=== PATIENT | male | born 1980 | race Caucasian/White ===

== ENCOUNTER 2018-01-01 18:57 | Emergency (ER) | payer BC ==
[~2018-01-01] VITALS: Ht 182.9 cm; Wt 151.2 kg
[~2018-01-01 18:57] MED LIST: ADVAIR DISK1 INH; ALBUTEROL S2.5 MG/.5 IN; ALBUTEROL SUL0.083 % IN; ALBUTEROL0.5 % IN; CIPRO500 MG OR; CIPROFLOXACN500 MG PO; DONNATA2 PO; DUONEB IN; FLEXERIL PO; HEPARIN LOC IV; HYDROCODON OR; IPRATROPIU0.5 MG/3 M IN; MEDDOSEPAK OR; MEDDOSEPAK PO; MEDROL4 M1 PO; NASONEX50 MCG/AC; OMEPRAZOLE20 M1 PO; ONDANSETRON HCL4 MG PO; ONDANSETRON4 MG PO; PHENERGAN25 MG RE; PREDNISONE10 MG OR; PREDNISONE20 MG OR; PROAIR HFA IN; PROTONIX40 M2 PO; PROTONIX40 MG PO; PULMICORT0.5MG/2ML IN; SEPTRA DS1 TAB OR; SODIUM CHLORIDE IV; STERAPRED DS10 MG OR; STERAPRED DS10 MG PO; SYMBICORT1 AE1 IN; SYMBICORT1 AER IN; ULTRAM50 M1 PO; ULTRAM50 MG PO; UNABLE TO OBTAIN; VANCOMYCIN1000 MG IV; VENTOLIN HFA IN; ZITHROMAX TRI-P1 TAB PO; ZITHROMAX250 MG OR; ZITHROMAX250 MG PO; ZOFRAN ODT4 MG PO; ZPAK OR; ZPAK PO; [UNRECOGNIZED DRUG - OTHER] IN; [UNRECOGNIZED DRUG - OTHER] IV
[2018-01-01 19:33] LABS: HEMATOCRIT 42.6 % (39.0-50.0); HEMOGLOBIN 14.2 g/dl (14.0-18.0); IMMATURE GRANULOCYTES 0.3 % (0.0-1.0); MEAN CELL VOLUME 86.8 fL CALC (80.0-100.0); MEAN CORPUSCULAR HGB 28.9 pG CALC (26.0-32.0); MEAN CORPUSCULAR HGB CONC 33.3 g/L CALC (32.0-36.0); NEUT# 4.83 thou/uL (1.82-7.42); RED BLOOD COUNT 4.91 mill/uL (4.70-6.10); RED CELL DISTRI WIDTH 13.2 % (11.5-15.5)
[2018-01-01 19:44] LABS: ALKALINE PHOSPHATASE 103 u/l (38-126); ANION GAP 16 (6-22 (CALC)); BILIRUBIN, TOTAL 0.4 mg/dL (0.0-1.4); BUN 8 mg/dL (9-20); BUN/CREATININE RATIO 10 (12-20 (CALC)); CARBON DIOXIDE 25 mmol/l (22-30); CHLORIDE 104 mmol/l (95-108); CREATININE 0.9 mg/dL (0.7-1.3); GFR > 60 ML/MIN (>=60 (CALC)); GFR FOR AFR.AMER. > 60 ML/MIN (>=60 (CALC)); POTASSIUM 3.8 mmol/l (3.5-5.1); SGOT/AST 53 u/l (17-59); SGPT/ALT 91 u/l (21-72); SODIUM 141 mmol/l (137-146)
[2018-01-01 19:48] LABS: INFLUENZA A NONE DETECTED (NONE DETECT); INFLUENZA B NONE DETECTED (NONE DETECT)
[2018-01-01 21:05] VITALS: BP 150/76
== END 2018-01-01 21:20 | disposition home or self-care (01) | DRG 203 ==
LOC: ED 18:57
PROVIDERS: Emergency Medicine
DX: J45.901 Unspecified asthma with (acute) exacerbation (principal); R05 Cough; Z72.0 Tobacco use; R50.9 Fever, unspecified

== ENCOUNTER 2018-09-02 14:31 | Observation (INO) | payer MEDICARE, BC ==
[~2018-09-02] VITALS: Ht 182.9 cm; Wt 152.7 kg
[2018-09-02] VITALS (8 sets, daily range): BP systolic 120–146; BP diastolic 65–90
--- NOTE | 2018-09-02 14:31 | NUR ---
PT IMMEDIATELY TO TX ROOM VIA WC. RR 30/MIN. AUDIBLE WHEEZING NOTED. RT CALLED.
[2018-09-02 15:16] LABS: IMMATURE GRANULOCYTES 0.3 % (0.0-5.0); MEAN CORPUSCULAR HGB 28.7 pG CALC (26.0-32.0); MEAN CORPUSCULAR HGB CONC 33.4 g/L CALC (32.0-36.0); NEUT# 5.64 thou/uL (1.82-7.42); RED BLOOD COUNT 5.78 mill/uL (4.70-6.10); RED CELL DISTRI WIDTH 12.5 % (11.5-15.5)
[2018-09-02 15:17] LABS: HEMATOCRIT 49.7 % (39.0-50.0); HEMOGLOBIN 16.6 g/dl (14.0-18.0)
[2018-09-02 15:21] LABS: ANION GAP 17 (6-22 (CALC)); BUN 13 mg/dL (9-20); BUN/CREATININE RATIO 16 (12-20 (CALC)); CARBON DIOXIDE 27 mmol/l (22-30); CHLORIDE 102 mmol/l (95-108); CREATININE 0.8 mg/dL (0.7-1.3); GFR > 60 ML/MIN (>=60 (CALC)); GFR FOR AFR.AMER. > 60 ML/MIN (>=60 (CALC)); POTASSIUM 4.2 mmol/l (3.5-5.1); SODIUM 141 mmol/l (137-146)
[2018-09-02] MEDS ORDERED: VENTOLIN HFA IN (15:24)
[2018-09-02] MEDS ORDERED: SYMBICORT1 AE1 IN (15:24)
--- NOTE | 2018-09-02 15:27 | NUR ---
WHEEZING NOTED TO BILATERAL LUNGS AFTER BREATHING TREATMENTS, RT PAGED FOR ADDITIONAL TREATMENTS ORDERED BY . PATIENT STATES "I ALWAY GAVE WHEEZING." PATIENT IS ALERT AND ORIENTED X4. FAMILY AT BEDSIDE. WILL CONTINUE TO MONITOR.
--- NOTE | 2018-09-02 15:55 | NUR ---
DR BRYANT AT BEDSIDE.
[2018-09-02 16:11] LABS: INFLUENZA A NONE DETECTED (NONE DETECT); INFLUENZA B NONE DETECTED (NONE DETECT)
--- NOTE | 2018-09-02 16:20 | NUR ---
PATIENT STATES "I FEEL MUCH BETTER." AFTER BREATHING TREATMENTS. LUNG SOUNDS CLEAR, CURRENTLY 99% O2 ON ROOM AIR. UPDATED ON WAIT TIME. VERBAL UNDERSTANDING.
--- NOTE | 2018-09-02 16:24 | NUR ---
REPORT GIVEN TO YOLA BRAR.
--- NOTE | 2018-09-02 16:30 | NUR ---
PATIENT TRANSPORTED TO ICU WITH ADMINISTRATIVE PERSONAL ASSISTANT IN PLACE VIA STRETCHER. CLOTHES, CELL PHONE AND GLASSES TRANSPORTED WITH PATIENT. PATIENT IN STABLE CONDITION, CARE RELINQUISHED TO YOLA BRAR.
--- NOTE | 2018-09-02 16:31 | NUR ---
PT ADMITTED TO ICU BED 8 FROM ER VIA STRETCHER; PT ALERT AND ORIENTED AMBULATED OFF STRECTHER AND INTO ROOM WITH STEADY GAIT; ADMISSION ASSESSMENT COMPLETED SEE INTERVNETIONS; ALL MONITORING EQUIPMENT EXPLAINED PRIOR TO APPLICATION, TELE READIN SR/ST RATE 95-104, BP STABLE SEE INTERVNETIONS PT AFEBRILE; LUNGS CLEAR DIMINSHED THRU OUT NO SOB OR DISTRESS NOTED AT THIS TIME, PT CAME INTO ER FOR ASTHMA ATTACK, PT HAS LONG STANDING HISTORY OF ASTHMA, USED HIS INHALER WITHOUT RELIEF, AFTER MUTIPLE NEB TREATMENTS IN ER OBTAINED RELIEF AND CURRENTLY STATES HE FEELS LIKE HE IS BREATHING "HIS NORMAL" AGAIN; SKIN WARM DRY AND INTACT, NO BREAKDOWN NOTED MILD TRACE EDEMA NOTED TO BILATERAL ANKLES, PPPB, SAFETY MEASURES INTRODUCED, ORIENTED TO ROOM AND UNIT, CALL SHAVER WITHIN REACH, ENCOURAGED TO CALL FOR ANY NEEDED ASSISTANCE, WILL CONTINUE TO MONITOR.
--- NOTE | 2018-09-02 17:30 | NUR ---
SPOUSE AT BEDSIDE, SET UP ASSIST PROVIDED FOR PM MEAL, OFFERS NO COMPLAINTS, O2 SAT MAINTAINED AT 98-100% ON ROOM AIR NO COUGH, SOB OR DISTRESS NOTED, WILL CONTINUE TO MONITOR.
--- NOTE | 2018-09-02 18:11 | NUR ---
RESTING IN BED, WATCHING TV, IV ABT INFUSING W/O INCIDENT THRU 18G IN R AC (GOOD ASPIRATE NOTED PRIOR TO STARTING INFUSION) CALL SHAVER WITHIN REACH, WILL CONTINUE TO MONITOR.
--- NOTE | 2018-09-02 19:30 | NUR ---
awake. denies resp diff. lungs clear with diminished breath sounds bibas. pt is very obese. security monitor shows sinus rhythm. #18 rac saline lock. po fluids taken well. voids per urinal. fall precautions cont.
--- NOTE | 2018-09-02 22:00 | NUR ---
sitting in bedside chair watching tv. no distress.
[2018-09-03 00:01] VITALS: BP 122/69
--- NOTE | 2018-09-03 00:01 | NUR ---
in bed per self. no c/o voiced. harness builder shows sinus rhythm.
[2018-09-03 02:00] VITALS: BP 122/66
--- NOTE | 2018-09-03 02:00 | NUR ---
resting quietly. appears to have sleep apnea. no resp distress.
[2018-09-03 04:00] VITALS: BP 123/68
--- NOTE | 2018-09-03 04:00 | NUR ---
eyes closed. ammonium hydroxide operator shows sinuws rhythm.
[2018-09-03 05:49] VITALS: BP 125/44
--- NOTE | 2018-09-03 05:50 | NUR ---
slept well this shift. no resp diff. color television console monitor shows sinus rhythm.
--- NOTE | 2018-09-03 06:45 | NUR ---
RECIEVED REPORT FROM AURELIA HARP. ASSUMED PT CARE.
[2018-09-03 08:00] VITALS: BP 143/87
--- NOTE | 2018-09-03 08:00 | NUR ---
PT A&OX3, ABLE TO MAKE NEEDS KNOWN. ST ON TELEMETRY, HR-108, B/P- 143/87, RR-22, SA02@95%RA. PT DENIES CHEST PAIN, SOB OR DISTRESS AT THIS TIME. RESPIRATIONS EVEN/UNLABORED, LS CLEAR BILAT UPPERS, DIMINISHED IN BILAT BASES. PT CONTINENT OF BLADDER, DENIES BURNING/PAIN UPON URINAtion. PT ABDOMEN SOFT/DISTENDED, NON-TENDER, BSX4 ACTIVE, REPORTS LAST BM 09/02/18. SKIN IS CDI, PT UP ADLIB WITH STEADY GAIT. 18G TO RAC FLUSHED WITHOUT DIFFICULTY NOTED, NO S/S OF INFILTRATION NOTED AT SITE. PT RESTING IN BED, CALL LIGHT IN REACH, WILL MONITOR.
--- NOTE | 2018-09-03 08:05 | NUR ---
DIETARY ON UNIT, BREAKFAST TRAY SET UP.
--- NOTE | 2018-09-03 08:30 | NUR ---
PT UP TO BATHROOM, URINE OP:750, DARK YELLOW. PT BACK TO BED, ALL MONITORS INTACT. CALL LIGHT IN REACH.
--- NOTE | 2018-09-03 09:00 | NUR ---
RADIOLOGY AT BS FOR CXR.
[2018-09-03 10:00] VITALS: BP 141/77
--- NOTE | 2018-09-03 10:15 | NUR ---
DR. BRYANT AT BEDSIDE FOR ASSESSMENT AND TO DISCUSS PLAN OF CARE, NEW ORDERS RECIEVED.
[2018-09-03] MEDS ORDERED: DOXYCYCL HYC100 MG PO (10:34)
[2018-09-03] MEDS ORDERED: PREDNISONE10 MG PO (10:34)
[2018-09-03] MEDS ORDERED: AMARYL2 MG PO (10:35)
[2018-09-03] MEDS ORDERED: PROTONIX40 M2 PO (10:44)
--- NOTE | 2018-09-03 11:10 | NUR ---
IV site discontinued, cath intact. No edema , no redness, voices no discomfort.
--- NOTE | 2018-09-03 11:45 | NUR ---
Discharge instructions given. Patient verbalizes understanding of same. Discharged in stable condition via Wheelchair to Home with family. All belongings sent with pt. New paper prescription sent home with pt.
== END 2018-09-03 11:45 | disposition home or self-care (01) ==
LOC: ED 14:31 → ED-I 15:53 → ED 16:06 → ICU 16:07
PROVIDERS: Family Medicine; ADMIT Internal Medicine Nephrology; ATTEND Internal Medicine Nephrology
DX: J45.901 Unspecified asthma with (acute) exacerbation (principal); J44.1 Chronic obstructive pulmonary disease with (acute) exacerbation; J96.02 Acute respiratory failure with hypercapnia; M06.9 Rheumatoid arthritis, unspecified; L40.9 Psoriasis, unspecified; K21.9 Gastro-esophageal reflux disease without esophagitis; F17.220 Nicotine dependence, chewing tobacco, uncomplicated; E87.2 Acidosis; E11.9 Type 2 diabetes mellitus without complications; G47.33 Obstructive sleep apnea (adult) (pediatric); E66.01 Morbid (severe) obesity due to excess calories
CPT/HCPCS: S0164

== ENCOUNTER 2018-09-08 08:38 | Emergency (ER) | payer MEDICARE, BC ==
[~2018-09-08] VITALS: Ht 182.9 cm; Wt 152.2 kg
[~2018-09-08 08:38] MED LIST changes: +AMARYL2 MG PO; +DOXYCYCL HYC100 MG PO; +PREDNISONE10 MG PO
[2018-09-08 09:57] VITALS: BP 137/95
== END 2018-09-08 10:08 | disposition home or self-care (01) ==
LOC: ED 08:38
DX: S93.601A Unspecified sprain of right foot, initial encounter (principal); S93.401A Sprain of unspecified ligament of right ankle, initial encounter; S63.501A Unspecified sprain of right wrist, initial encounter; J45.909 Unspecified asthma, uncomplicated; W10.1XXA Fall (on)(from) sidewalk curb, initial encounter; Y92.831 Amusement park as the place of occurrence of the external cause

== ENCOUNTER → 2019-01-30 | Outpatient (REF) | payer MEDICARE ==
[2019-01-30 10:22] VITALS: BP 162/89
== END ==
LOC: FIOURUCCI 10:00 → FIORUCCI 10:00
PROVIDERS: ATTEND Surgery
DX: K80.20 Calculus of gallbladder without cholecystitis without obstruction (principal); Z87.19 Personal history of other diseases of the digestive system; J45.909 Unspecified asthma, uncomplicated

== ENCOUNTER 2020-12-17 13:07 | Emergency (ER) | payer MEDICARE ==
[~2020-12-17] VITALS: Ht 182.9 cm; Wt 159.5 kg
[2020-12-17] MEDS ORDERED: COZAAR25 MG PO (13:53)
[2020-12-17] MEDS ORDERED: SINGULAIR10 MG PO (13:53)
[2020-12-17] MEDS ORDERED: LIPITOR10 M1 PO (13:54)
[2020-12-17] MEDS ORDERED: METFORMIN HCL500 M2 PO (13:54)
[2020-12-17] MEDS ORDERED: MELOXICAM15 MG PO (13:54)
[2020-12-17] MEDS ORDERED: MEDDOSEPAK PO (16:05)
[2020-12-17] MEDS ORDERED: TRAMADOL HYDROC50 MG PO (16:05)
[2020-12-17 16:24] VITALS: BP 131/88
== END 2020-12-17 16:24 | disposition home or self-care (01) ==
LOC: ED 13:07
DX: M25.562 Pain in left knee (principal); E11.9 Type 2 diabetes mellitus without complications; J45.909 Unspecified asthma, uncomplicated; M06.9 Rheumatoid arthritis, unspecified; F17.220 Nicotine dependence, chewing tobacco, uncomplicated; Z79.84 Long term (current) use of oral hypoglycemic drugs

== ENCOUNTER 2021-04-06 00:39 | Emergency (ER) | payer MEDICARE ==
[~2021-04-06] VITALS: Ht 185.4 cm; Wt 150.0 kg
[~2021-04-06 00:39] MED LIST changes: +COZAAR25 MG PO; +LIPITOR10 M1 PO; +MELOXICAM15 MG PO; +METFORMIN HCL500 M2 PO; +SINGULAIR10 MG PO; +TRAMADOL HYDROC50 MG PO
[2021-04-06 01:33] LABS: ALBUMIN 3.9 g/dL (3.2-5.0); ALKALINE PHOSPHATASE 105 u/l (38-126); AMYLASE 64 u/l (30-110); ANION GAP 10 (6-22 (CALC)); BILIRUBIN, TOTAL 0.6 mg/dL (0.0-1.4); BUN 12 mg/dL (9-20); BUN/CREATININE RATIO 13 (12-20 (CALC)); CARBON DIOXIDE 30 mmol/l (22-30); CHLORIDE 100 mmol/l (95-108); CREATININE 0.9 mg/dL (0.7-1.3); GFR > 60 ML/MIN (>=60 (CALC)); GFR FOR AFR.AMER. > 60 ML/MIN (>=60 (CALC)); HEMATOCRIT 44.7 % (39.0-50.0); HEMOGLOBIN 14.1 g/dl (14.0-18.0); IMMATURE GRANULOCYTES 0.6 % (0.0-5.0); LIPASE 186 u/l (23-300); MEAN CELL VOLUME 85.5 fL CALC (80.0-100.0); MEAN CORPUSCULAR HGB CONC 31.5 g/dL CAL (32.0-36.0); NEUT# 6.77 thou/uL (1.82-7.42); POTASSIUM 3.6 mmol/l (3.5-5.1); RED BLOOD COUNT 5.23 mill/uL (4.70-6.10); RED CELL DISTRI WIDTH 14.2 % (11.5-15.5); SGOT/AST 57 u/l (17-59); SODIUM 137 mmol/l (137-146); TOTAL PROTEIN 7.3 g/dL (6.3-8.2)
[2021-04-06] MEDS ORDERED: PROTONIX40 MG PO (04:08)
[2021-04-06 04:12] VITALS: BP 132/69
== END 2021-04-06 04:21 | disposition home or self-care (01) ==
LOC: ED 00:39
PROVIDERS: Emergency Medicine
DX: R10.13 Epigastric pain (principal); E11.9 Type 2 diabetes mellitus without complications; J45.909 Unspecified asthma, uncomplicated; M06.9 Rheumatoid arthritis, unspecified; F17.200 Nicotine dependence, unspecified, uncomplicated; Z87.442 Personal history of urinary calculi; Z79.84 Long term (current) use of oral hypoglycemic drugs
CPT/HCPCS: Q9967; S0164

== ENCOUNTER 2021-04-08 23:07 | Emergency (ER) | payer MEDICARE, MEDICAID ==
[~2021-04-08] VITALS: Ht 185.4 cm; Wt 146.0 kg
[2021-04-09 01:09] LABS: HEMATOCRIT 46.3 % (39.0-50.0); HEMOGLOBIN 14.6 g/dl (14.0-18.0); IMMATURE GRANULOCYTES 0.4 % (0.0-5.0); MEAN CELL VOLUME 85.6 fL CALC (80.0-100.0); MEAN CORPUSCULAR HGB CONC 31.5 g/dL CAL (32.0-36.0); NEUT# 7.57 thou/uL (1.82-7.42); RED BLOOD COUNT 5.41 mill/uL (4.70-6.10); RED CELL DISTRI WIDTH 14.8 % (11.5-15.5)
[2021-04-09 01:27] LABS: ALBUMIN 4.1 g/dL (3.2-5.0); AMYLASE 52 u/l (30-110); BUN 7 mg/dL (9-20); BUN/CREATININE RATIO 9 (12-20 (CALC)); CHLORIDE 101 mmol/l (95-108); CREATININE 0.8 mg/dL (0.7-1.3); GFR > 60 ML/MIN (>=60 (CALC)); GFR FOR AFR.AMER. > 60 ML/MIN (>=60 (CALC)); LIPASE 174 u/l (23-300); POTASSIUM 3.8 mmol/l (3.5-5.1); SODIUM 135 mmol/l (137-146); TOTAL PROTEIN 7.4 g/dL (6.3-8.2)
[2021-04-09 01:29] LABS: ALKALINE PHOSPHATASE 195 u/l (38-126); ANION GAP 17 (6-22 (CALC)); BILIRUBIN, TOTAL 5.5 mg/dL (0.0-1.4); CARBON DIOXIDE 21 mmol/l (22-30); SGOT/AST 146 u/l (17-59)
[2021-04-09] MEDS ORDERED: PERCOCET 10/31 COMBO PO (03:23)
[2021-04-09] MEDS ORDERED: PREVACID30 M3 PO (03:23)
[2021-04-09] MEDS ORDERED: ONDANSETRON4 MG PO (03:23)
[2021-04-09 03:34] VITALS: BP 147/88
[2021-04-09 03:59] LABS: URINE BLOOD DIPSTICK NEGATIVE (NEGATIVE); URINE GLUCOSE - DIPSTICK NEGATIVE (NEGATIVE); URINE KETONE >=80 mg/dL (NEGATIVE); URINE LEUK ESTERASE NEGATIVE (NEGATIVE); URINE PROTEIN - DIPSTICK NEGATIVE (NEG-TRACE); URINE SPECIFIC GRAVITY 1.015; URINE UROBILINOGEN - DIPSTICK 0.2 E.U./dL (0.2)
[2021-04-09 04:00] LABS: URINE BILIRUBIN - DIPSTICK LARGE (NEGATIVE); URINE NITRITE - DIPSTICK NEGATIVE (Negative)
[2021-04-09 04:01] LABS: URINE COLOR AMBER
[2021-04-09] MEDS ORDERED: CARAFATE1 GM PO (10:54)
[2021-04-09] MEDS ORDERED: ARAVA10 MG PO (10:54)
[2021-04-09] MEDS ORDERED: ARNUITY EL50 MCG/ACT (10:54)
== END 2021-04-09 03:40 | disposition home or self-care (01) ==
LOC: ED 23:07
PROVIDERS: Emergency Medicine
DX: K80.20 Calculus of gallbladder without cholecystitis without obstruction (principal); R74.8 Abnormal levels of other serum enzymes; E11.9 Type 2 diabetes mellitus without complications; J45.909 Unspecified asthma, uncomplicated; F17.220 Nicotine dependence, chewing tobacco, uncomplicated; Z79.84 Long term (current) use of oral hypoglycemic drugs
CPT/HCPCS: Q9967; S0164

== ENCOUNTER 2022-04-05 15:50 | Emergency (ER) | payer MEDICARE, OTHER ==
[~2022-04-05] VITALS: Ht 185.4 cm; Wt 150.0 kg
[2022-04-05] VITALS (8 sets, daily range): BP systolic 116–128; BP diastolic 70–92
[~2022-04-05 15:50] MED LIST changes: +ARAVA10 MG PO; +ARNUITY EL50 MCG/ACT; +CARAFATE1 GM PO; +PERCOCET 10/31 COMBO PO; +PREVACID30 M3 PO
[2022-04-05 16:22] LABS: HEMATOCRIT 45.9 % (39.0-50.0); HEMOGLOBIN 14.8 g/dl (14.0-18.0); IMMATURE GRANULOCYTES 0.2 % (0.0-5.0); MEAN CELL VOLUME 88.8 fL CALC (80.0-100.0); MEAN CORPUSCULAR HGB 28.6 pG CALC (26.0-32.0); MEAN CORPUSCULAR HGB CONC 32.2 g/dL CAL (32.0-36.0); NEUT# 4.52 thou/uL (1.82-7.42); RED BLOOD COUNT 5.17 mill/uL (4.70-6.10); RED CELL DISTRI WIDTH 12.7 % (11.5-15.5)
[2022-04-05 16:36] LABS: ACT PARTIAL THROMBO TIME 23.2 SECONDS (20.0-32.5); ALBUMIN 3.9 g/dL (3.2-5.0); ALKALINE PHOSPHATASE 93 u/l (38-126); ANION GAP 15 (6-22 (CALC)); BILIRUBIN, TOTAL 0.6 mg/dL (0.0-1.4); BUN 13 mg/dL (9-20); BUN/CREATININE RATIO 13 (12-20 (CALC)); CARBON DIOXIDE 24 mmol/l (22-30); CHLORIDE 104 mmol/l (95-108); GFR > 60 ML/MIN (>=60 (CALC)); GFR FOR AFR.AMER. > 60 ML/MIN (>=60 (CALC)); POTASSIUM 3.3 mmol/l (3.5-5.1); SGOT/AST 41 u/l (17-59); SODIUM 140 mmol/l (137-146)
[2022-04-05] MEDS ORDERED: PERCOCET 5/321 COMBO PO (17:39)
[2022-04-05] MEDS ORDERED: KEFLEX500 MG PO (17:39)
== END 2022-04-05 18:20 | disposition home or self-care (01) ==
LOC: ED 15:50
PROC: 0HQDXZZ Repair Right Lower Arm Skin, External Approach (ICD-10-PCS; principal; 2022-04-05)
DX: S61.511A Laceration without foreign body of right wrist, initial encounter (principal); R55 Syncope and collapse; I10 Essential (primary) hypertension; E11.9 Type 2 diabetes mellitus without complications; K21.9 Gastro-esophageal reflux disease without esophagitis; F17.200 Nicotine dependence, unspecified, uncomplicated; W26.8XXA Contact with other sharp object(s), not elsewhere classified, initial encounter; Y92.009 Unspecified place in unspecified non-institutional (private) residence as the place of occurrence of the external cause; Z79.84 Long term (current) use of oral hypoglycemic drugs

== ENCOUNTER 2025-01-17 16:34 | Emergency (ER) | payer MEDICARE ==
[2025-01-17] VITALS (10 sets, daily range): BP systolic 86–140; BP diastolic 63–96
[~2025-01-17] VITALS: Ht 185.4 cm; Wt 158.0 kg
[~2025-01-17 16:34] MED LIST changes: +KEFLEX500 MG PO; +PERCOCET 5/321 COMBO PO
[2025-01-17] MEDS ORDERED: NORVASC5 M1 PO (17:10)
[2025-01-17] MEDS ORDERED: ASPIRIN 81 MG/TAB PO ONE (17:10)
[2025-01-17] MEDS ORDERED: HYDROCHLOROTH12.5 MG PO (17:10)
[2025-01-17 17:34] LABS: BASO% 0.5 % (0-3); EOS% 0.8 % (0-8); HEMATOCRIT 41.5 % (39.0-50.0); HEMOGLOBIN 12.7 g/dl (14.0-18.0); IMMATURE GRANULOCYTES 0.4 % (0.0-5.0); LYMPH% 35.3 % (15-41); MEAN CELL VOLUME 77.9 fL CALC (80.0-100.0); MEAN CORPUSCULAR HGB 23.8 pG CALC (26.0-32.0); MEAN CORPUSCULAR HGB CONC 30.6 g/dL CAL (32.0-36.0); MONO% 7.6 % (2-13); NEUT# 5.45 thou/uL (1.82-7.42); NEUT% 55.4 % (42-76); RED BLOOD COUNT 5.33 mill/uL (4.70-6.10); RED CELL DISTRI WIDTH 15.2 % (11.5-15.5)
[2025-01-17] MEDS ORDERED: MORPHINE SULFATE 4 MG/ML VIAL IV ONE (17:50)
[2025-01-17] MEDS ORDERED: ONDANSETRON HCl 4 MG/2 ML SDV IV ONE (17:50)
[2025-01-17] MEDS ORDERED: SODIUM CHLORIDE 0.9% 1,000 ML IV ONE (17:50)
[2025-01-17 17:51] LABS: INTERNATIONAL NORMALIZED RATIO 0.9 RATIO (0.7-1.3)
[2025-01-17 17:53] LABS: ALBUMIN 3.9 g/dL (3.2-5.0); ALKALINE PHOSPHATASE 105 u/l (38-126); ANION GAP 10 (6-22 (CALC)); BILIRUBIN, TOTAL 0.7 mg/dL (0.2-1.3); BUN 19 mg/dL (9-20); BUN/CREATININE RATIO 19 (12-20 (CALC)); CARBON DIOXIDE 30 mmol/l (22-30); CHLORIDE 101 mmol/l (95-108); ESTIMATED GFR 94 ML/MIN (>=90 (CALC)); LIPASE 146 u/l (23-300); POTASSIUM 3.5 mmol/l (3.5-5.1); SODIUM 138 mmol/l (137-146); TOTAL PROTEIN 7.2 g/dL (6.3-8.2)
[2025-01-17 18:00] LABS: SGOT/AST 101 u/l (17-59)
[2025-01-17] MEDS ORDERED: Pantoprazole Sodium 40 MG VIAL (Protonix) IV ONE (20:10)
[2025-01-17] MEDS ORDERED: FAMOTIDINE 10MG/ML 2ML SDV IV ONE (20:15)
[2025-01-17] MEDS ORDERED: PROTONIX40 M2 PO (20:27)
== END 2025-01-17 20:58 | disposition home or self-care (01) ==
LOC: ED 16:34
PROVIDERS: Nurse Practitioner
DX: R10.11 Right upper quadrant pain (principal); R10.13 Epigastric pain; I10 Essential (primary) hypertension; E11.9 Type 2 diabetes mellitus without complications; F17.220 Nicotine dependence, chewing tobacco, uncomplicated; Z96.89 Presence of other specified functional implants
CPT/HCPCS: J2405; J2470; Q9967